=== PATIENT | female | born 1970 | race Caucasian/White ===

== ENCOUNTER 2017-11-11 13:09 | Day surgery (SDC) | payer BC, OTHER ==
[~2017-11-11] VITALS: Ht 160 cm; Wt 101.2 kg
[2017-11-11] MEDS ORDERED: PROTONIX 40MG T40 MG PO (13:36)
[2017-11-11] MEDS ORDERED: MULTIPLE VITAMI1 TA5 PO (13:36)
[2017-11-11 13:44] VITALS: BP 136/68; PULSE 64; TEMP 98.2
[2017-11-11 15:25] VITALS: BP 123/69; PULSE 60
[2017-11-11 15:40] VITALS: BP 122/71; PULSE 57
[2017-11-11 16:43] VITALS: BP 127/74; PULSE 71; TEMP 97.4
== END 2017-11-11 16:10 | disposition home or self-care (01) ==
LOC: SDCO 13:09
DX: N20.1 Calculus of ureter (principal)
CPT/HCPCS: J0690; J1100; J2405; J2704; J3010; J7120; Q9967